=== PATIENT | male | born 1975 | race Caucasian/White ===

== ENCOUNTER 2019-11-22 00:06 | Day surgery (SDC) | payer OTHER, SELFPAY ==
[2019-11-08 10:32] VITALS: BMI 27.1
--- NOTE | 2019-11-21 10:01 | WPDANESEPP ---
Anes - Eval Pre Procedure Procedure: Operation Date: 11/22/19 07:30 Proposed Procedures p Laparoscopic Right Inguinal Hernia Repair with Mesh, Possible Open - Rishabh Simmons MD s Umbilical Hernia Repair with Sutures or Mesh - Rishabh Simmons MD Date/Time: 11/21/19 10:01 Pre Op Diagnosis: Right Inguinal Hernia, Umbilical Hernia Patient Data Age: 44 Gender: M Height: 1.98 m Weight: 106.59 kg Allergies Allergy/AdvReac Type Severity Reaction Status Date / Time Penicillins Allergy Unknown Unknown Verified 11/10/19 08:04 Home Medications Medication Instructions Recorded Confirmed Type multivitamin 1 tablet PO DAILY 11/08/19 11/08/19 History vitamin B complex 1 tablet PO DAILY 11/08/19 11/08/19 History zinc 50 mg PO DAILY 11/08/19 11/08/19 History Patient hx anesthesia problems: none Family hx anesthesia problems: none PMFSH Past Medical History Medical History Chest pain on exertion Epididymitis Family history of early CAD Surgical History Surgical History History of hand surgery History of vasectomy Family History Family History Mother Diabetes mellitus Father Hypertension Family history of cardiovascular disease Social History Social History Smoking status: Current every day smoker Smoking end date: 10/20/04 Alcohol intake: current Exam Day of Procedure 11/21/19 10:01
[2019-11-22] VITALS (8 sets, daily range): BP systolic 126–160; BP diastolic 79–95; PULSE 56–91; RESP 12–20; TEMP 36.3–36.4; O2SAT 98–100
[2019-11-22] MEDS: LACTATED RINGERS 1,000 ML 30 ML IV CONT ×2 (06:30→09:30)
--- NOTE | 2019-11-22 07:20 | P.PNAN_ITS ---
Anes - Initial Pre Proc Eval Procedure: Operation Date: 11/22/19 07:30 Proposed Procedures p Laparoscopic Right Inguinal Hernia Repair with Mesh, Possible Open - Rishabh Simmons MD s Umbilical Hernia Repair with Sutures or Mesh - Rishabh Simmons MD Date/Time: 11/22/19 07:20 Surgeon: Rishabh Simmons MD Pre Op Diagnosis: Right Inguinal Hernia, Umbilical Hernia Patient Data Age: 44 Gender: M Height: 6 ft 6 in Weight: 103 kg Last Vital Signs Temp 97.6 F 11/22/19 06:16 Pulse 57 L 11/22/19 06:16 Resp 20 11/22/19 06:16 BP 143/90 H 11/22/19 06:16 Allergies Allergy/AdvReac Type Severity Reaction Status Date / Time Penicillins Allergy Unknown Other Verified 11/22/19 06:41 Home Medications Medication Instructions Recorded Confirmed Type multivitamin 1 tablet PO DAILY 11/08/19 11/22/19 History vitamin B complex 1 tablet PO DAILY 11/08/19 11/22/19 History zinc 50 mg PO DAILY 11/08/19 11/22/19 History Patient hx anesthesia problems: none Family hx anesthesia problems: none PMFSH Past Medical History Medical History (Updated 11/22/19 @ 07:20 by Denton Huynh MD) Chest pain on exertion Epididymitis Family history of early CAD Hyperlipidemia Surgical History Surgical History History of hand surgery History of vasectomy Family History Family History Mother Diabetes mellitus Father Hypertension Family history of cardiovascular disease Social History Social History Smoking status: Current every day smoker Smoking end date: 10/20/04 Alcohol intake: current Anes - Eval Final PreProcedure Day of Procedure 11/22/19 07:20 Patient weight: normal Heart: regular rate and rhythm Lungs: clear to auscultation Airway: Mallampati scale class II Neurological: alert and oriented Last oral intake: >/= 8 hours ASA classification: II Emergent: no Anesthetic plan: proceed Anesthesia type and monitoring: general ETT and standard monitoring Informed Consent: The patient's anesthetic plan and its attendant risks and benefits were discussed with the patient/family/POA. Questions were solicited a nd answers provided to the satisfaction of the patient/family/POA.
--- NOTE | 2019-11-22 07:23 | WPDHPUPDATE1 ---
History and Physical Update Update Date/Time: 11/22/19 07:23 History and Physical has been reviewed, including an updated exam of the patient. There are NO changes in the patient's condition. Risks, benefits, and alternatives have been discussed and questions answered. Patient agrees to proceed with procedure.
[2019-11-22] MEDS: ceFAZolin 2 GM/D5W 50 ML 2 GM/50 ML BAG IVPB (07:32)
[2019-11-22] MEDS: BUPIVACAINE/EPINEPHRINE 0.5% 30 ML VIAL INFILTRATE (08:33)
--- NOTE | 2019-11-22 09:28 | PM.PROC ---
Procedure Note - Detailed Date of procedure: 11/22/19 Pre-op diagnosis: Right Inguinal Hernia, Umbilical Hernia Post-op diagnosis: same (Indirect right inguinal hernia) Procedure performed: 1. Totally extraperitoneal right inguinal hernia repair with mesh 2. Umbilical hernia repair, [id number] with sutures Description of procedure: After appropriate marking of the operative site prior to surgery, the patient was taken to the operating room. After induction of adequate general endotracheal anesthesia by [facility] staff, the patient was carefully prepped and draped in a sterile fashion. A timeout was performed confirming the procedure and site of surgery on the RIGHT. Following this, local anesthetic was infiltrated into the umbilical area and a transverse curvilinear incision was made just below the umbilicus. I carefully dissected down to the the anterior rectus sheath on the right and then made a 1 cm vertical slit in the fascia just off the midline. The rectus muscle was retracted to right and then just in front of the posterior rectus sheath, a dissecting balloon was passed onto the pubic bone. After placing slight pressure on the left groin area, this was insufflated with 40 pumps, while watching with the 0 degree laparoscope. It appeared that I was in the proper plane. Following this, the dissecting balloon was removed and replaced by an O frame conforming balloon. Following this, the 10 mm 0 degree laparoscope was used to carefully place two 5mm trocars, just to the left of midline. One was placed in the suprapubic position and other one nursing home between the umbilicus and the pubic bone. Tedious dissection then occurred in the preperitoneal space exposing the Aryan's ligament, the cord structures, the muscular tissue anteriorly, and the retroperitoneum. The peritoneum was then able to be dissected back and we could visualize the posterior peritoneum. I then dissected up to the level of the umbilicus and it was ready for mesh placement. After carefully confirming all sites and that the mesh would cover the direct space, I carefully rolled the large piece of 3DMax Bard mesh and slid this through the 12 mm trocar at the umbilical level down into the preperitoneal space. This unfurled nicely and sat nicely against the right groin structures. It nicely covered all spaces and it went back nicely into the preperitoneal space along the Rt. anterior-superior iliac spine. I took a picture of it carefully, which showed that the mesh will cover the preperitoneal groin well, and had come down to the posterior border of the peritoneum. Once this was accomplished, I took the patient out of Trendelenburg position, rotated the patient back even, and then observed using a dissector through the higher 5 mm trocar to keep the mesh pushed down against the anterior and posterior abdominal wall retroperitoneally. The peritoneum was then allowed to fall on to the mesh and it held the mesh nicely in place. I carefully removed each of the 5 mm trocars under direct vision and compressed the CO2 gas out of the preperitoneal space, deflating the conforming balloon and removing it. I was happy with the way the peritoneum laid back on the mesh. I felt this will give the patient a good preperitoneal repair. Following this, I carefully removed the conforming balloon. An O Vicryl figure of eight suture was used to close the anterior rectus sheath on the [left/right] side of the umbilical incision and then local anesthetic was infiltrated into each of the incisions. Each site was closed with 4-0 undyed Vicryl and a running subcuticular closure of 4-0 undyed Vicryl was used on the skin of umbilicus. Surgical glue was used for dressing. Following this, the patient was taken to the recovery room in good condition. Estimated blood loss, again, was about less than 30 mls. Home going instructions were given for taking it easy for one week and to follow up in the office in one week. Implants: [facility]
--- NOTE | 2019-11-22 12:47 | SUR.PHASEII ---
1200 pt is waiting for a pain script, the electronic system is down. dr quiros is in a case at this time. 1235 dr quiros is going to print a pain script.
== END 2019-11-22 13:20 | disposition home or self-care (01) ==
PROVIDERS: PCP Emergency Medicine; Visit Provider Surgery
PROC: (CPT 49650; principal; 2019-11-22 07:30)
PROC: (CPT 49650; 2019-11-22 07:30)
DX: K40.90 Unilateral inguinal hernia, without obstruction or gangrene, not specified as recurrent (principal); K42.9 Umbilical hernia without obstruction or gangrene; F17.210 Nicotine dependence, cigarettes, uncomplicated
CPT/HCPCS: 49650; 88300; A9270; C1727; C1781; J0330; J0690; J1100; J1170; J2250; J2405; J2704; J2710; J3010; J7120

== ENCOUNTER 2021-10-02 12:32 | Emergency (ER) | payer OTHER, SELFPAY ==
--- NOTE | ~2021-10-02 | CT_ITS ---
EXAMINATION: CT abdomen pelvis w con DATE: 10/02/2021 15:38 INDICATION: Abdominal pain. Flank pain. TECHNIQUE: Computed tomography (CT) of the abdomen and pelvis was performed with 100 mL Omnipaque 350 intravenous contrast. Automated exposure control and iterative reconstruction technique were employe d. The dose-length product was 949.06 mGy-cm. COMPARISON: Ultrasound abdomen 07/26/2019 FINDINGS: The visualized portions of the lung bases demonstrate mild dependent atelectasis. No pleura l effusion. The heart size is normal. No pericardial effusion. There is a 5 mm cyst in the liver. The re is wall thickening of the fundus of the gallbladder, consistent with adenomyomatosis. The spleen, pancreas, adrenal glands, and left kidney are normal. There is a delayed right-sided contrast nephrog jacqueline. There is mild right hydronephrosis and hydroureter. 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 There is a 3 mm stone at right ureterovesicular junction. There is a urachal remnant at the anteros uperior aspect of the bladder. There is a right inguinal hernia containing fat. The prostate is mildl y enlarged. There are no dilated loops of bowel. The appendix is normal. There are no pathologically enlarged lymph nodes. There is no free intraperitoneal fluid. There is mild thoracic spondylosis and moderate lumbar spondylosis. IMPRESSION: 1. 3 mm stone at right ureterovesicular junction with mild right hydronephrosis and hydroureter. Reviewed, dictated and finalized at location A. [employer] IN[employer] IMPRESSION: 1. 3 mm stone at right ureterovesicular junction with mild right hydronephrosi s and hydroureter.
[2021-10-02 12:45] VITALS: BP 155/87; PULSE 64; RESP 20; TEMP 36.8; O2SAT 99
[2021-10-02 14:46] LABS: Basophils Absolute Auto 0.1 K/mm3 (0.0-0.1); Basophils Percent Auto 0.4 % (0.2-1.2); Eosinophils Absolute Auto 0.1 K/mm3 (0-0.3); Eosinophils Percent Auto 0.5 % (0-4.4); Hematocrit 45.9 % (42.0-52.0); Hemoglobin 15.5 g/dL (14.0-18.0); Immature Granulocyte Absolute 0.04 K/mm3 (0.00-0.031); Immature Granulocyte Percent A 0.4 % (0-0.5); Lymphocytes Absolute Auto 1.52 K/mm3 (0.9-3.2); Lymphocytes Percent Auto 13.6 % (18.3-44.2); Mean Corpuscular HGB Conc 33.8 g/dl (32-36); Mean Corpuscular Hemoglobin 30.4 pg (26-34); Mean Platelet Volume 10.1 fl (7.4-10.4); Monocytes Absolute Auto 0.7 K/mm3 (0.1-0.6); Monocytes Percent Auto 6.2 % (2.6-8.5); Neutrophils Absolute Auto 8.8 K/mm3 (1.3-6.7); Neutrophils Percent Auto 78.9 % (45.5-73.1); Platelet Count Result 255 k/mm3 (150-375); Red Cell Distribution Width 12.6 % (11.5-14.5); White Blood Count 11.2 K/mm3 (4.5-10.0)
[2021-10-02 15:00] LABS: Alanine Aminotransferase 133 U/L (4-50); Albumin Level 4.7 g/dL (3.5-5.1); Alkaline Phosphatase 104 U/L (38-126); Anion Gap 11 mmol/L (8-16); Aspartate Amino Transferase 48 U/L (17-59); Bilirubin,Total 0.8 mg/dL (0.2-1.3); Blood Urea Nitrogen 19 mg/dL (9-20); Calcium 9.5 mg/dL (8.4-10.2); Carbon Dioxide 23 mmol/L (22-30); Chloride 101 mmol/L (98-107); Estimated CRCL calculation 105 ml/min; Estimated Glomerular Filt Rate > 60; Glucose 98 mg/dL (65-110); Lipase 58 U/L (23-300); Potassium 4.1 mmol/L (3.4-5.0); Sodium 135 mmol/L (137-145)
--- NOTE | 2021-10-02 15:11 | ED.ABDPAIN ---
HPI - Abdominal Pain General Chief Complaint: Abdominal Pain Stated Complaint: R Kidney Pain Time Seen by Provider: 10/02/21 15:10 Source: patient Mode of arrival: ambulatory Limitations: no limitations History of Present Illness HPI narrative: Patient presents with sudden onset of right flank pain started prior to arrival to the emergency room, patient denies any nausea, vomiting, diarrhea, constipation, fever, chills, diaphoresis. Patient reports some trouble urinating with burning sensation today. Patient denies a history of kidney stone, his father have history of kidney stone. Patient is fully vaccinated for COVID. Related Data Home Medications Medication Instructions Recorded Confirmed vitamin B complex 1 tablet PO DAILY 11/08/19 10/25/20 zinc 50 mg PO DAILY 11/08/19 10/25/20 Allergies Allergy/AdvReac Type Severity Reaction Status Date / Time Penicillins Allergy Unknown Other Verified 10/02/21 14:35 Review of Systems Review of Systems: CONSTITUTIONAL: Denies fever, chills, or sweats. EYES: Denies visual changes, redness, or discharge. ENT: Denies rhinorrhea, congestion, sore throat, or otalgia. CARDIOVASCULAR: Denies chest pain, palpitations, or edema. RESPIRATORY: Denies cough or dyspnea. GASTROINTESTINAL: Denies abdominal pain, nausea, vomiting, or diarrhea. GENITOURINARY: Denies dysuria or hematuria. SKIN: Denies rash or itching. MUSCULOSKELETAL: Denies back pain, joint pain, or myalgia. NEUROLOGIC: Denies headache, numbness, or weakness. PSYCHIATRIC: Denies anxiety or depression. PMFSH Past Medical History Medical History (Updated 10/02/21 @ 16:43 by Ashanti Jerome MD) Chest pain on exertion Epididymitis Family history of early CAD Hyperlipidemia Surgical History Surgical History History of hand surgery History of vasectomy Family History Family History Mother Diabetes mellitus Father Hypertension Family history of cardiovascular disease Social History Social History Smoking status: Former smoker Smoking end date: 10/20/04 Alcohol intake: current Exam Narrative: General appearance: Well-developed, well-nourished Skin: Normal color Head: Normocephalic, nontraumatic Eyes: Clear conjunctiva ENT: Oropharynx normal, ears normal, nose normal Neck: Supple, nontender Chest and respiratory: Airway patent, no respiratory distress, no accessory muscle use Heart: Regular rate/rhythm Abdomen: Soft, nontender, no organomegaly, quiet bowel sounds, tenderness right flank Vascular: Normal peripheral pulses, normal capillary refill. Musculoskeletal: Normal range of motion, nontender back Neurologic: Alert and oriented ?3, [employer] is normal as tested, no gross motor deficit Course Course Emergency Course: Stable Vital Signs Vital signs: Vital Signs Temperature 36.8 C 10/02/21 12:45 Pulse Rate 64 10/02/21 12:45 Respiratory Rate 20 10/02/21 12:45 Blood Pressure 155/87 H 10/02/21 12:45 Pulse Oximetry 99 10/02/21 12:45 Temperature 36.8 C 10/02/21 12:45 Pulse Rate 64 10/02/21 12:45 Respiratory Rate 20 10/02/21 12:45 Blood Pressure 155/87 H 10/02/21 12:45 Pulse Oximetry 99 10/02/21 12:45 MDM - Abdominal Pain MDM Narrative Medical decision making narrative: Kidney stone is my concern. Labs, CT abdomen pelvis, IV fluid. Patient declined any pain medication at this time. Differential Diagnosis Differential diagnosis: Likely abdominal pain, calculus of kidney, constipation and diverticulitis Lab Data Result diagrams: 09/19
[2021-10-02] MEDS: SODIUM CHLORIDE 0.9% IV 1,000 ML 999 ML IV CONT (15:28)
[2021-10-02 15:41] LABS: Add Urine Microscopic? YES; Appearance Urine Clear (Clear); Bilirubin Urine Negative (Negative); Blood Urine 3+ (Negative); Color Urine Yellow (Yellow); Glucose Urine UA Negative (Negative); Ketones Urine Negative (Negative); Leukocyte Esterase Ur Negative LEU/UL (Negative); Mucus Urine Rare /lpf; Nitrate Urine Negative (Negative); Protein Urine Negative (Negative); Specific Grav Ur 1.016 (1.001-1.035); Urobilinogen Urine Negative mg/dL (<2.0); WBC Urine 0-3 /hpf
[2021-10-02] MEDS: KETOROLAC 30 MG/ML VIAL (*BKC) IV PUSH (17:10)
== END 2021-10-03 01:00 | disposition home or self-care (01) ==
PROVIDERS: Emergency Provider Emergency Medicine; PCP Emergency Medicine
DX: N13.2 Hydronephrosis with renal and ureteral calculous obstruction (principal); E78.5 Hyperlipidemia, unspecified; Z87.891 Personal history of nicotine dependence
CPT/HCPCS: 36415; 74177; 80053; 81001; 83690; 85025; 96361; 96374; 99284; J1885; J7030; Q9967

== ENCOUNTER 2024-11-01 07:00 | Outpatient (NON) | payer OTHER, SELFPAY | END 2024-11-01 07:01 | disposition home or self-care (01) | PROVIDERS: PCP Emergency Medicine; Visit Provider Internal Medicine Gastroenterology | DX: D12.5 Benign neoplasm of sigmoid colon (principal); Z12.11 Encounter for screening for malignant neoplasm of colon | CPT/HCPCS: 88305 ==